=== PATIENT | female | born 1950 | race Caucasian/White ===

== ENCOUNTER 2018-10-31 09:40 | Outpatient (CLI) | payer MEDICARE | END 2018-10-31 23:59 | disposition home or self-care (01) | LOC: CFH 09:40 | PROVIDERS: ATTEND Physician Assistant | DX: Z12.31 Encounter for screening mammogram for malignant neoplasm of breast (principal); M81.0 Age-related osteoporosis without current pathological fracture | CPT/HCPCS: 77080; 77067 ==

== ENCOUNTER 2019-01-04 14:10 | Emergency (ER) | payer MEDICARE ==
[~2019-01-04] VITALS: Ht 154.9 cm; Wt 43.5 kg
[2019-01-04 14:18] VITALS: BP 125/59
== END 2019-01-04 15:10 | disposition home or self-care (01) ==
LOC: ED 14:37
DX: L03.116 Cellulitis of left lower limb (principal)
CPT/HCPCS: 10060; 99283

== ENCOUNTER 2019-01-06 09:47 | Outpatient (CLI) | payer MEDICARE | END 2019-01-06 23:59 | disposition home or self-care (01) | LOC: CFH 09:47 | PROVIDERS: ATTEND Physician Assistant | DX: K83.8 Other specified diseases of biliary tract (principal) | CPT/HCPCS: 76705 ==

== ENCOUNTER 2019-01-06 10:36 | Emergency (ER) | payer MEDICARE | END 2019-01-06 11:19 | disposition left against medical advice (07) | LOC: ED 11:13 | DX: Z53.21 Procedure and treatment not carried out due to patient leaving prior to being seen by health care provider (principal) ==

== ENCOUNTER 2019-01-06 17:33 | Emergency (ER) | payer MEDICARE ==
[~2019-01-06] VITALS: Ht 154.9 cm; Wt 43.7 kg
[2019-01-06 17:34] VITALS: BP 129/86
== END 2019-01-06 18:19 | disposition home or self-care (01) ==
LOC: ED 18:00
DX: L03.116 Cellulitis of left lower limb (principal)
CPT/HCPCS: 99283

== ENCOUNTER 2019-06-29 08:28 | Emergency (ER) | payer MEDICARE ==
[~2019-06-29] VITALS: Ht 154.9 cm; Wt 46.6 kg
[2019-06-29 08:29] VITALS: BP 140/79
--- NOTE | 2019-06-29 08:48 | NUR ---
CHIEF OF PEDIATRIC UROLOGY: CALLED PATIENT FROM [facility], NO ANSWER
--- NOTE | 2019-06-29 08:57 | NUR ---
[employer]: CALLED PATIENT FROM [facility]
--- NOTE | 2019-06-29 09:25 | NUR ---
TECHNOLOGY APPLICATIONS ENGINEER: CALLED PATIENT, NO ANSWER
== END 2019-06-29 09:31 | disposition left against medical advice (07) ==
LOC: ED 08:40
DX: M79.622 Pain in left upper arm (principal); Z53.21 Procedure and treatment not carried out due to patient leaving prior to being seen by health care provider

== ENCOUNTER 2020-12-11 19:52 | Emergency (ER) | payer MEDICARE ==
[~2020-12-11] VITALS: Ht 154.9 cm; Wt 46.0 kg
[2020-12-11] MEDS ORDERED: SODIUM CHLORIDE FLUSH 10ML SYR IVF ONE (22:00)
[2020-12-11] MEDS ORDERED: ONDANSETRON 2MG/ML, 2ML IVPush ONE (22:00)
[2020-12-11] MEDS ORDERED: MORPHINE SULFATE 4 MG/ML, 1ML IVPush PRN (22:00)
--- NOTE | 2020-12-11 22:10 | NUR ---
PT BACK TO ROOM FROM CT
[2020-12-11 22:11] LABS: BASOPHILS % (AUTO) 1 % (0-1); EOSINOPHILS % (AUTO) 0 % (1-7); LYMPHOCYTES % (AUTO) 11 % (22-44); MEAN CORPUSCULAR HEMOGLOBIN 27.6 pg (27.0-34.8); MEAN CORPUSCULAR HGB CONC 33.4 g/dL (32.4-35.8); MEAN PLATELET VOLUME 9.5 fL (7.4-10.4); MONOCYTES % (AUTO) 8 % (2-9); NEUTROPHILS % (AUTO) 80 % (42-75); PLATELET COUNT 178 x10^3/uL (130-400); RED BLOOD COUNT 4.82 x10^6/uL (3.82-5.3)
[2020-12-11 22:14] LABS: ALANINE AMINOTRANSFERASE 22 U/L (12-78); ALBUMIN 3.7 g/dL (3.4-5.0); CHLORIDE 104 mmol/L (98-107); CREATININE 0.73 mg/dL (0.55-1.02)
[2020-12-11 22:16] LABS: ALKALINE PHOSPHATASE 109 U/L (45-117); BILIRUBIN,TOTAL 0.7 mg/dL (0.2-1.0); TOTAL PROTEIN 8.5 g/dL (6.4-8.2)
[2020-12-11 22:17] LABS: ANION GAP 7 mmol/L (5-15)
[2020-12-11] MEDS ORDERED: MORPHINE SULFATE 4 MG/ML, 1ML ONE (22:20)
[2020-12-11] MEDS ORDERED: ONDANSETRON 2MG/ML, 2ML ONE (22:20)
--- NOTE | 2020-12-11 22:20 | NUR ---
First contact with patient: patient denies the need for pain meds. States she was in a lot of pain on arrival but it has since resolved. All tests have resulted. Awaiting ERP to see.
[2020-12-11 22:28] VITALS: BP 130/77
--- NOTE | 2020-12-11 23:50 | NUR ---
Patient not in room; eloped.
== END 2020-12-12 00:13 | disposition left against medical advice (07) ==
LOC: ED 20:00
DX: R10.32 Left lower quadrant pain (principal)
CPT/HCPCS: 36415; 74176; 80053; 83690; 85025; 99284